=== PATIENT | male | born 1960 | race Caucasian/White ===

== ENCOUNTER 2016-06-21 11:12 | Outpatient (CLI) | payer OTHER | END 2016-06-21 11:13 | disposition home or self-care (01) | DX: Z00.00 Encounter for general adult medical examination without abnormal findings (principal); R53.83 Other fatigue; Z12.5 Encounter for screening for malignant neoplasm of prostate; M60.9 Myositis, unspecified ==

== ENCOUNTER 2016-06-29 09:10 | Outpatient (CLI) | payer OTHER | END 2016-06-29 09:11 | disposition home or self-care (01) | DX: E29.1 Testicular hypofunction (principal) ==

== ENCOUNTER 2016-07-30 13:00 | Day surgery (SDC) | payer OTHER ==
[2016-07-30] MEDS ORDERED: LACTATED RINGERS 1,000 ML IV ONE (13:40)
[2016-07-30] MEDS ORDERED: MIDAZOLAM 2 MG/2 ML VIAL IVP ONE (13:50)
[2016-07-30] MEDS ORDERED: fentaNYL 250 MCG/5 ML VIAL IVP ONE (13:50)
[2016-07-30] MEDS ORDERED: SIMETHICONE 40 MG/0.6 ML 30 ML BOTTLE PO ONE (13:53)
== END 2016-07-30 13:01 | disposition home or self-care (01) ==
PROC: 0DJD8ZZ Inspection of Lower Intestinal Tract, Via Natural or Artificial Opening Endoscopic (ICD-10-PCS; principal; 2016-07-30 14:15)
DX: Z12.11 Encounter for screening for malignant neoplasm of colon (principal); K58.9 Irritable bowel syndrome, unspecified; K64.8 Other hemorrhoids; I10 Essential (primary) hypertension; Z82.49 Family history of ischemic heart disease and other diseases of the circulatory system; Z80.3 Family history of malignant neoplasm of breast
CPT/HCPCS: 45378; A9270; J3010; J7120

== ENCOUNTER 2018-07-28 21:59 | Outpatient (CLI) | payer OTHER ==
--- NOTE | 2018-07-28 23:00 | Ultrasound Report ---
Reason: LT TESTICULAR MASS Procedure Date: 07/28/2018 Accession Number: [id number] / [id number] Procedure: US - Testicle CPT Code: FULL RESULT: EXAM: SCROTAL ULTRASOUND EXAM DATE: 07/28/2018 10:37 PM. CLINICAL HISTORY: LT TESTICULAR MASS. COMPARISON: None. TECHNIQUE: Real-time scanning was performed with static images obtained. Color-flow images were utilized. FINDINGS: Right: Testis: 4.4 x 3.0 x 2.6 cm. Normal size and echotexture. No mass, calcification, or abnormal blood flow. Epididymis: 2.2 x 1.0 x 1.0 cm. Incidental 9 mm epididymal cyst. Hydrocele: Small Varicocele: None. Left: Testis: 4.2 x 3.0 x 2.9 cm. Normal size and echotexture. No mass, calcification, or abnormal blood flow. Epididymis: 1.8 x 1.2 x 0.9 cm. Normal size and echotexture. No mass or abnormal blood flow. Hydrocele: Large Varicocele: None. IMPRESSION: Left greater than right hydroceles. No intratesticular mass. RADIA The above call report findings were discussed with Mary Cheng by Dr. Jesus Abarca at 10:58 PM on 07/28/2018.
== END 2018-07-28 22:00 | disposition home or self-care (01) ==
LOC: DI 21:59
PROVIDERS: ATTEND Physician Assistant Medical
DX: N43.3 Hydrocele, unspecified (principal)
CPT/HCPCS: 76870

== ENCOUNTER 2018-12-08 07:36 | Day surgery (SDC) | payer BC ==
[2018-12-08] MEDS ORDERED: LACTATED RINGERS 1,000 ML IV ONE (07:45)
[2018-12-08] MEDS ORDERED: CEFAZOLIN SODIUM IN 0.9 % NACL 2 GM/100 ML BAG IV ONE (08:18)
--- NOTE | 2018-12-08 08:21 | ANESTHESIA ---
Pre-Anesthesia VS, & Labs - Diagnosis left hydrocele - Procedure left hydrocelectomy Vital Signs: Temp Pulse Resp BP Pulse Ox 36.0 C L 63 16 130/96 H 98 12/08/18 07:57 12/08/18 07:57 12/08/18 07:57 12/08/18 07:57 12/08/18 07:57 Height 5 ft 11 in Weight (kg) 97 kg - NPO >8 hours Home Medications and Allergies Fluoxetine HCl [Prozac] 20 mg PO DAILY 03/24/15 Lisinopril/Hydrochlorothiazide [Lisinopril-Hctz 10-12.5 mg Tab] 1 tab PO DAILY 03/24/15 Ibuprofen [Advil] 400 mg PO Q6HR PRN 03/29/15 Allergies/Adverse Reactions: Allergies Allergy/AdvReac Type Severity Reaction Status Date / Time cyclobenzaprine HCl * Allergy Unknown "not feel Verified 11/19/18 13:08 [From Flexeril] good" Sugar Allergy Severe Roof of Uncoded 03/24/15 07:37 mouth tingles Anes History & Medical History - Anesthetic History Anesthesia Complications: reports: Post-Operative Nausea/Vomiting - Medical History Cardiovascular: reports: Hypertension Pulmonary: reports: None Gastrointestinal: reports: None Urinary: reports: None Musculoskeletal: reports: None Endocrine/Autoimmune: reports: None Skin: reports: None - Surgical History General: Other (umbilical hernia) Exam General: Alert Dental: WNL Mouth Opening: Greater than 4 Fingerbreadths Neck Mobility: Normal Mallampati classification: II Thyromental Distance: greater than 6 cm Respiratory: Lungs clear Cardiovascular: Regular rate, Normal S1, Normal S2 Mental/Cognitive Status: Alert/Oriented X3 Plan Anesthesia Type: General Consent for Procedure(s) Verified and Reviewed: Yes Code Status: Attempt Resuscitation ASA classification: 2-Mild systemic disease Is this case an emergency?: No
[2018-12-08] MEDS ORDERED: BUPIVACAINE 0.5% PF 10 ML VIAL ONE (10:02)
[2018-12-08] MEDS ORDERED: BACITRACIN OINT TOP ONE ×3 (10:02→10:41)
[2018-12-08] MEDS ORDERED: LIDOCAINE-MPF 1% 30 ML VIAL ONE (10:03)
[2018-12-08] MEDS ORDERED: BUPIVACAINE 0.5% PF 30 ML VIAL SUBQ ONE (10:41)
[2018-12-08] MEDS ORDERED: ONDANSETRON 4 MG/2 ML VIAL IVP ONE (11:00)
[2018-12-08] MEDS ORDERED: LIDOCAINE-MPF 2% 5 ML VIAL IM ONE (11:00)
[2018-12-08] MEDS ORDERED: MIDAZOLAM 2 MG/2 ML VIAL IVP ONE (11:00)
[2018-12-08] MEDS ORDERED: PROPOFOL 200 MG/20 ML VIAL IVP ONE (11:00)
[2018-12-08] MEDS ORDERED: KETOROLAC 30 MG/ML VIAL IVP ONE (11:00)
[2018-12-08] MEDS ORDERED: DEXAMETHASONE 4 MG/ML VIAL IVP ONE (11:00)
[2018-12-08] MEDS ORDERED: HYDROmorphone 0.5 MG/0.5 ML SYRINGE IVP PRN (11:35)
[2018-12-08] MEDS ORDERED: HYDROcod/ACETAM 5/325 MG TABLET PO PRN (11:35)
[2018-12-08] MEDS ORDERED: ONDANSETRON 4 MG/2 ML VIAL IVP PRN (11:35)
[2018-12-08 12:56] VITALS: BP 120/58
--- NOTE | 2018-12-11 12:43 | OPERATIVE REPORT ---
DATE OF SERVICE: 12/08/2018 Physician: Quita Green MD NAME OF PROCEDURE: Left hydrocelectomy. SURGEON: Quita Green MD ANESTHESIA: General. PREOPERATIVE DIAGNOSIS: Left hydrocele bothersome. POSTOPERATIVE DIAGNOSIS: Left hydrocele bothersome. INDICATIONS: The patient is a 58-year-old gentleman with a complaint of scrotal swelling, found on e xam and evaluation to be simple hydrocele. Counseled about risks and benefits of treatment options a nd he elected surgical intervention. After counseling extensively about risks, benefits, he wished to proceed. OPERATIVE DESCRIPTION: After appropriate informed consent was obtained, the patient was brought to [facility] operating room where he received IV Ancef prior to the procedure. SCDs were placed. He was made comfortable in supine position. All pressure points were carefully padded cleaned, prepped and drape d in the usual sterile fashion. A midline scrotal incision was made along the raphe. It was carried out sharply bluntly with electrocautery entering into the left side of the scrotum. We dissected th is down to the level of the hydrocele. The attachment fibers which were loosely attached were peeled back. We entered the hydrocele sac, resected it. The edges were cauterized extensively with electr ocautery and then oversewn with a 3-0 chromic suture. Hemostasis was excellent. The testis was irri gated out thoroughly, placed in anatomically correct position back inside the left hemiscrotum. We c losed the wound with a running 2-0 Vicryl suture in 2 layers and then a 2-0 chromic suture for the sk in. Hemostasis was quite good. Marcaine plain was used for postop anesthesia, both as a cord block and then also an incisional block. The patient tolerated the procedure very well. Sterile dressing was applied. He was awakened and taken in stable condition to the postanesthesia care unit. TD: 12/11/2018 10:21
== END 2018-12-08 07:37 | disposition home or self-care (01) ==
LOC: SDS 07:36
PROVIDERS: ATTEND Urology
PROC: 0VB70ZZ Excision of Left Tunica Vaginalis, Open Approach (ICD-10-PCS; principal; 2018-12-08 08:45)
DX: N43.3 Hydrocele, unspecified (principal); N43.41 Spermatocele of epididymis, single; I10 Essential (primary) hypertension; Z79.899 Other long term (current) drug therapy
CPT/HCPCS: 55040; A9270; J0690; J7120

== ENCOUNTER 2020-01-22 13:22 | Outpatient (CLI) | payer OTHER ==
--- NOTE | 2020-01-22 16:15 | XRAY Report ---
PROCEDURE: Elbow 3 View LT INDICATIONS: L elbow pain TECHNIQUE: 3 views of the elbow were acquired. COMPARISON: None FINDINGS: Bones: No fractures or dislocations. No suspicious bony lesions. Soft tissues: No elbow joint effusion. No suspicious soft tissue calcifications. IMPRESSION: 1. No acute radiographic findings. If pain persists, cross-sectional imaging with CT or MRI could be used to further characterize findings. Reviewed by: Janna Shen MD on 01/22/2020 4:14 PM PDT Approved by: Janna Shen MD on 01/22/2020 4:14 PM PDT Station ID: [id number]
== END 2020-01-22 13:23 | disposition home or self-care (01) ==
LOC: DI.N 13:22
PROVIDERS: ATTEND Family Medicine
DX: M25.522 Pain in left elbow (principal)